=== PATIENT | female | born 1975 | race Caucasian/White ===

== ENCOUNTER 2025-06-22 10:56 | Emergency (ER) | payer SELFPAY ==
[2025-06-22] MEDS ORDERED: Clindamycin 150 MG CAP ONE (11:41)
== END 2025-06-22 11:46 | disposition home or self-care (01) ==
LOC: MADERS 10:56
DX: S31.829A Unspecified open wound of left buttock, initial encounter (principal); L03.317 Cellulitis of buttock; F17.200 Nicotine dependence, unspecified, uncomplicated; Z55.6 Problems related to health literacy; Z86.19 Personal history of other infectious and parasitic diseases; X58.XXXA Exposure to other specified factors, initial encounter
CPT/HCPCS: 87070; 87077; 87186; 87205; 99283